=== PATIENT | female | born 1995 | race Caucasian/White ===

== ENCOUNTER 2017-07-21 21:37 | Emergency (ER) | payer BC ==
--- NOTE | ~2017-07-21 | ER ---
PATIENT'S NAME: ZENY TROTTER [facility] AGE: 21 Y [address] ROOM: [place] [id number] LOCATION: [facility] ADMIT DATE: 07/21/2017 ER/Outpatient Report DISCHARGE DATE: 07/21/2017 FAMILY PHYSICIAN: PHYSICIAN, NO ATTENDING PHYSICIAN: Albert Dunn Time of Arrival: 2139 hours. Time of Evaluation: 2139 hours. CHIEF COMPLAINT: Vomiting, vaginal discharge. HISTORY OF PRESENT ILLNESS: The patient states she has had nausea and vomiting x2 days. States she has had lower abdominal pain. Crampy type pain. She states it is sharp at times. She reports she had some vaginal discharge yesterday, had some spotting of blood last week, none today. She reports that her last menstrual period was in March, however, she did spot some in April. She reports she did a home test in April, and it was positive. She is scheduled to see Dr. Beaulieu on August 06. She denies having fever or chills. Denies any pain with urination. Had a normal bowel movement yesterday. ALLERGIES: NO KNOWN ALLERGIES. CURRENT MEDICATIONS: On her chart and reviewed by me. PAST MEDICAL HISTORY: Miscarriage. She is a 4, para 1, AB 2. PAST SURGICAL HISTORY: . SOCIAL HISTORY: She denies use of tobacco, drugs, or alcohol. REVIEW OF SYSTEMS: Negative other than those mentioned in the HPI. PHYSICAL EXAMINATION: VITAL SIGNS: She weighs 85.5 kg, blood pressure is 129/73, pulse of 100, respirations 16, temperature of 99, O2 saturation is 99% on room air. GENERAL: She is awake, alert, and oriented x4. SKIN: [place], warm, and dry. PATIENT'S NAME: ZENY TROTTER [facility] AGE: 21 Y [address] ROOM: [place] [id number] LOCATION: [facility] ADMIT DATE: 07/21/2017 ER/Outpatient Report DISCHARGE DATE: 07/21/2017 FAMILY PHYSICIAN: PHYSICIAN, NO ATTENDING PHYSICIAN: Albert Dunn RESPIRATIONS: Even and nonlabored. Lung sounds are clear throughout. HEART: Regular rate and rhythm. ABDOMEN: Soft, nondistended. Bowel sounds are present. EMERGENCY ROOM COURSE: Saline lock was initiated. Fluids of normal saline were started at a wide- open rate. She was given Zofran 4 mg IV. LABORATORY DATA AND X-RAYS: Lab work was drawn. CBC is within normal limits. Chem panel: Sodium is 136, potassium is 3.6, chloride is 106, glucose is 115. Her serum HCG is 78,657. Blood type was O positive. Ultrasound was completed. They report she is 10 weeks 1 day intrauterine . Heart rate of 175. Cervix is closed. No abnormalities of the uterus or ovaries are seen. She did not have any vomiting here. Did not have any discharge vaginally while in the ER. IMPRESSION: Intrauterine with vomiting. PLAN: Home, rest, fluids. Prescription was written for Zofran. She is to follow up with her primary provider in the next 2 to 3 days. She verbalized understanding. KATH ALEJANDRA APRN FOR MD KEVIN CHÁVEZ/maria eugenia /[id number] d: 07/22/17 0106 t: 07/25/17 1519, OUTPATIENT REPORT
[2017-07-21 22:13] LABS: BASOPHIL % 0.3 %; EOSINOPHIL % 0.5 %; HEMATOCRIT 39.2 % (33.0-46.0); HEMOGLOBIN 13.8 g/dL (11.0-15.0); IMMATURE GRANULOCYTE % 0.2 %; LYMPHOCYTE # 1.8 K/uL (0.8-4.0); LYMPHOCYTE % 21.3 %; MCH 30.7 pg (27.0-34.0); MCHC 35.2 gm/dL (32.0-36.5); MCV 87.3 fl (83.0-98.0); MONOCYTE # 0.6 K/uL (0.0-1.0); MONOCYTE % 6.4 %; MPV 9.7 fl (9.4-12.4); NEUTROPHIL # (ANC) 6.1 K/uL (1.8-7.8); NEUTROPHIL % 71.3 %; NRBC % 0 /100WBC (0-0.00); PLATELET COUNT 286 K/uL (150-450); RBC 4.49 M/uL (3.50-5.00); RDW-CV 11.8 % (11.9-14.6); WBC 8.6 K/uL (4.0-11.0)
[2017-07-21 22:34] LABS: ALBUMIN 3.8 gm/dL (3.5-5.0); ALK PHOS 85 IU/L (33-138); ALT 23 IU/L (12-78); ANION GAP 11.3 (10.0-19.0); AST 16 IU/L (10-40); BLOOD UREA NITROGEN 6 mg/dL (6-24); CALCIUM 8.9 mg/dL (8.5-10.5); CHLORIDE 106 mMol/L (96-110); CO2 22 mMol/L (22-32); CREATININE 0.8 mg/dL (0.5-1.1); POTASSIUM 3.3 mMol/L (3.7-5.1); SODIUM 136 mMol/L (135-145); TOTAL BILIRUBIN 0.5 mg/dL (0.0-1.5); TOTAL PROTEIN 7.8 g/dL (6.0-8.4)
== END 2017-07-21 23:29 | disposition disaster alternative care site (69) ==
LOC: GMED 21:37
PROVIDERS: Emergency Medicine
DX: O21.9 Vomiting of pregnancy, unspecified (principal); Z3A.10 10 weeks gestation of pregnancy
CPT/HCPCS: J2405; J7030